=== PATIENT | male | born 1955 | race Caucasian/White ===

== ENCOUNTER 2020-07-30 13:33 | Outpatient (CLI) | payer OTHER, SELFPAY ==
--- NOTE | ~2020-07-30 | XR_ITS ---
EXAMINATION: XR hip LT min 3V w AP pelvis DATE: 07/30/2020 14:05 INDICATION: Left hip pain. TECHNIQUE: An anteroposterior view of the pelvis and 3 views of left hip were obtained. COMPARISON: CT abdomen and pelvis 11/13/2018 FINDINGS: Bone alignment is normal. No fracture. There is moderate lumbar spondylosis. There is moder ate right hip osteoarthritis and severe left hip osteoporosis. IMPRESSION: 1. Moderate right hip osteoarthritis and severe left hip osteoarthritis. Reviewed, dictated and finalized at location A.
== END 2020-07-30 13:34 | disposition home or self-care (01) ==
PROVIDERS: PCP Family Medicine; Visit Provider Family Medicine
DX: M16.12 Unilateral primary osteoarthritis, left hip (principal)
CPT/HCPCS: 73502

== ENCOUNTER 2020-08-12 11:18 | Outpatient (CLI) | payer OTHER, SELFPAY ==
--- NOTE | ~2020-08-12 | XR_ITS ---
EXAMINATION: XR lg joint inject/asp w image EXAM DATE: 08/12/2020 12:26 INDICATION: M16.12 - Unilateral primary osteoarthritis, left hip. TECHNIQUE: This procedure was performed by Dr. Tarik Villafuerte, radiologist. I discussed procedure inclu ding the risks, benefits and alternatives with the patient. Risks discussed included bleeding and inf ection. The patient understood the risks and agreed to proceed. A time-out was performed to verify the patient's name, date of , and procedure. The skin over lying the left hip joint was prepped and draped in usual sterile fashion. Patient declined standard positioning due to pain, required knee significantly bent and could not int ernally rotate the leg to aid in procedure. Anesthetic was administered with 2 milliliters 1% lidocaine subcutaneously. A 22 G 3.5 needle was a dvanced under fluoroscopic guidance toward the joint. Initial 1 mL Omnipaque 240 contrast injection w as quite focal and probably just outside the hip joint. Needle was then slightly repositioned and adv anced an additional 1 mL Omnipaque was injected after intra-articular contrast suspected. Subsequent ly, injectate consisting of 5 mL 1% lidocaine, 2 mL Kenalog 10 was instilled. The needle was removed and the entry site was cleaned and dressed. There were no immediate complicat ions. Pulsed dose reduction fluoroscopy was used with fluoroscopic time of 0.1. The DAP for this pr ocedure was 0.1 Gycm2. A total of 2 images obtained for the exam. The procedure was performed on 07/28. FINDINGS: Real-time fluoroscopy demonstrates the contrast overlying the left hip joint, some of which likely external, and some internal to the hip joint. IMPRESSION: 1. Left hip joint injection with lidocaine, steroids. 2. Patient reported preprocedure pain level at 10/10, post procedure pain level 5/10. If patient juarez s not have expected benefit from this, consider repeating with standard positioning, if patient able. Reviewed, dictated and finalized at location B. IMPRESSION: 1. Left hip joint injection with lidocaine, steroids. 2. Patient reported preprocedure pain level at 10/10, post procedure pain leve l 5/10. If patient does not have expected benefit from this, consider repeating with standard positioning, if patient able.
== END 2020-08-12 11:19 | disposition home or self-care (01) ==
LOC: ANHIMG 11:23
PROVIDERS: PCP Family Medicine; Visit Provider Orthopaedic Surgery
DX: M16.12 Unilateral primary osteoarthritis, left hip (principal)
CPT/HCPCS: 20610; 77002; J3301; Q9966